=== PATIENT | female | born 1955 | race Caucasian/White ===

== ENCOUNTER 2021-07-24 15:00 | Emergency (ER) | payer MEDICARE, BC ==
[2021-07-24 15:19] VITALS: BP 147/87; PULSE 111; RESP 18; TEMP 98.2
--- NOTE | 2021-07-24 15:27 | ED ---
General Adult HPI - General Chief complaint: Fall Stated complaint: FALL Time Seen by Provider: 07/24/21 15:10 Source: patient, family, EMS Mode of arrival: EMS Limitations: physical limitation - History of Present Illness Initial comments: Presents to the ED by ambulance for evaluation with her son and daughter at bedside. Patient states that she went up some stairs this afternoon and turned to get her walker when her "feet got tangled up", causing her to fall down onto her right side. Per daughter, the patient's son caught her, so "she didn't fall down hard". Daughter states that as they were attempting to get the patient back up, the patient became dizzy and had a brief syncopal episode. Patient, son and daughter all deny head injury or LOC at the time of the patient's fall. Patient denies falling due to dizziness. Patient states that she has felt fatigued since she got her Covid booster shot 2 days ago. Patient denies anticoagulant medication use. Patient is currently only complaining of having right ankle, right knee, right hip and right shoulder pain. Patient states that she has been ambulatory since falling. Patient denies fever or chills, head injury, headache, focal numbness/weakness/neuro deficit, visual changes, speech difficulty, neck/back pain, chest pain, dyspnea, cough or cold symptoms, palpitations, abdominal pain, nausea/vomiting/diarrhea, bloody or melanotic stool, dysuria or urinary symptoms, or any other symptoms or complaints. - Related Data Allergies Allergy/AdvReac Type Severity Reaction Status Date / Time Penicillins Allergy Anaphylaxis Verified 07/24/21 17:27 Review of Systems ROS Statement: Those systems with pertinent positive or pertinent negative responses have been documented in the HPI. ROS Other: All systems not noted in ROS Statement are negative. Past Medical History Past Medical History: Hypertension, Myocardial Infarction ([place]) Additional Past Medical History / Comment(s): Type one diabetes History of Any Multi-Drug Resistant Organisms: None Reported Past Surgical History: Back Surgery, Heart Catheterization With Stent, Joint Replacement, Orthopedic Surgery Additional Past Surgical History / Comment(s): Four stents placed 11/2018, Carpaltunnel surgery, gallbladder in 1973 Past Psychological History: No Psychological Hx Reported Smoking Status: Never smoker Past Alcohol Use History: None Reported Past Drug Use History: None Reported General Exam Limitations: physical limitation General appearance: alert, in no apparent distress Head exam: Present: atraumatic, normocephalic Eye exam: Present: normal appearance, PERRL, EOMI ENT exam: Present: mucous membranes moist, TM's normal bilaterally Neck exam: Present: full ROM, other (Trachea is in midline). Absent: tenderness Respiratory exam: Present: normal lung sounds bilaterally. Absent: respiratory distress, wheezes, rales, rhonchi, stridor, chest wall tenderness Cardiovascular Exam: Present: normal rhythm, tachycardia, normal heart sounds, other (Normal radial pulses bilaterally) GI/Abdominal exam: Present: soft, other (Obese abdomen). Absent: tenderness, guarding Extremities exam: Present: other (Pelvis is stable and nontender; mild diffuse right ankle and right knee tenderness; no right hip or right shoulder tenderness). Absent: pedal edema Back exam: Present: normal inspection. Absent: tenderness Neurological exam: Present: alert, oriented X3, CN II-XII intact. Absent: motor sensory deficit Psychiatric exam: Present: normal affect, normal mood Skin exam: Present: warm, dry, intact, normal color Course Vital Signs 07/24/21 15:06 Temperature 98.2 F Pulse Rate 111 H Respiratory 18 Rate Blood Pressure 147/87 O2 Sat by Pulse 97 Oximetry - Reevaluation(s) Reevaluation #1: 07/24/21 17:27 Patient denies development of any new pain or symptoms while in the ED. Patient remains alert and breathing comfortably with a normal room air oxygen saturation. Patient and son/daughter are aware of the patient's test results, and they all feel comfortable with the patient going home at this time. Patient was counseled about falls, syncope and contusions. Patient was clearly explained return and follow-up instructions, and she was instructed to a low threshold for return to the emergency department should her symptoms worsen. Patient was also instructed to follow up closely with her primary care provider. Patient feels comfortable with this plan. EKG Findings - EKG Comments: EKG Findings:: Sinus tachycardia with borderline first-degree AV block, ventricular rate of 111 bpm, no ectopy, rightward axis, WA interval of 208 ms, normal QRS duration, normal QT interval, no ST or T-wave abnormality Medical Decision Making - Medical Decision Making Patient reports that her fall was completely mechanical in etiology. Patient's reported brief syncopal episode occurred while the patient's son and daughter attempted to get the patient up, and I suspect that this may have triggered a vasovagal episode. Patient states that she has not been dizzy or lightheaded ever since then. Patient's imaging studies are negative for acute osseous abnormalities. Patients labs are fairly unremarkable. I do not suspect an emergent medical condition at this time. Will discharge patient home with her family at this time. - Lab Data Result diagrams: 07/24/21 16:13 07/24/21 16:13 Lab Results 07/24/21 07/24/21 07/24/21 Range/Units 16:13 16:13 16:13 WBC 8.8 (3.8-10.6) k/uL RBC 4.65 (3.80-5.40) m/uL Hgb 14.6 (11.4-16.0) gm/dL Hct 44.4 (34.0-46.0) % MCV 95.5 (80.0-100.0) fL MCH 31.3 (25.0-35.0) pg MCHC 32.8 (31.0-37.0) g/dL RDW 12.7 (11.5-15.5) % Plt Count 251 (150-450) k/uL MPV 7.8 Neutrophils % 84 % Lymphocytes % 7 % Monocytes % 6 % Eosinophils % 2 % Basophils % 0 % Neutrophils # 7.4 (1.3-7.7) k/uL Lymphocytes # 0.6 L (1.0-4.8) k/uL Monocytes # 0.5 (0-1.0) k/uL Eosinophils # 0.2 (0-0.7) k/uL Basophils # 0.0 (0-0.2) k/uL PT 11.2 (9.0-12.0) sec INR 1.1 (<1.2) APTT 22.4 (22.0-30.0) sec Sodium 135 L (137-145) mmol/L Potassium 4.6 (3.5-5.1) mmol/L Chloride 102 (98-107) mmol/L Carbon Dioxide 22 (22-30) mmol/L Anion Gap 11 mmol/L BUN 27 H (7-17) mg/dL Creatinine 1.45 H (0.52-1.04) mg/dL Est GFR (CKD-EPI)AfAm 43 (>60 ml/min/1.73 sqM) Est GFR (CKD-EPI)NonAf 37 (>60 ml/min/1.73 sqM) Glucose 176 H (74-99) mg/dL Calcium 10.2 (8.4-10.2) mg/dL Total Bilirubin 0.8 (0.2-1.3) mg/dL AST 36 (14-36) U/L ALT 27 (4-34) U/L Alkaline Phosphatase 47 (38-126) U/L Troponin I (0.000-0.034) ng/mL Total Protein 7.4 (6.3-8.2) g/dL Albumin 4.4 (3.5-5.0) g/dL 07/24/21 Range/Units 16:13 WBC (3.8-10.6) k/uL RBC (3.80-5.40) m/uL Hgb (11.4-16.0) gm/dL Hct (34.0-46.0) % MCV (80.0-100.0) fL MCH (25.0-35.0) pg MCHC (31.0-37.0) g/dL RDW (11.5-15.5) % Plt Count (150-450) k/uL MPV Neutrophils % % Lymphocytes % % Monocytes % % Eosinophils % % Basophils % % Neutrophils # (1.3-7.7) k/uL Lymphocytes # (1.0-4.8) k/uL Monocytes # (0-1.0) k/uL Eosinophils # (0-0.7) k/uL Basophils # (0-0.2) k/uL PT (9.0-12.0) sec INR (<1.2) APTT (22.0-30.0) sec Sodium (137-145) mmol/L Potassium (3.5-5.1) mmol/L Chloride (98-107) mmol/L Carbon Dioxide (22-30) mmol/L Anion Gap mmol/L BUN (7-17) mg/dL Creatinine (0.52-1.04) mg/dL Est GFR (CKD-EPI)AfAm (>60 ml/min/1.73 sqM) Est GFR (CKD-EPI)NonAf (>60 ml/min/1.73 sqM) Glucose (74-99) mg/dL Calcium (8.4-10.2) mg/dL Total Bilirubin (0.2-1.3) mg/dL AST (14-36) U/L ALT (4-34) U/L Alkaline Phosphatase (38-126) U/L Troponin I <0.012 (0.000-0.034) ng/mL Total Protein (6.3-8.2) g/dL Albumin (3.5-5.0) g/dL - Radiology Data Chest and right shoulder x-rays: 1. Chest: Borderline heart size with interstitial prominence. This may in part be chronic. Correlate to exclude mild pulmonary vascular congestion, bronchitis, or asthma. 2. Right shoulder: Previous rotator cuff repair but with narrowing of the subacromial space. Unable to exclude underlying re-tear. Moderate AC joint OA. No acute fracture, subluxation, dislocation seen. Right hip, right knee and right ankle x-rays: 1. Right hip: Osteopenia and further limitations due to large body habitus. Mild right hip OA. No displaced fracture seen. 2. Right knee: Suspect severe tricompartmental OA. Small knee joint effusion may be reactive. If concern for internal derangement, MRI can be performed. No acute osseous abnormality seen. 3. Right ankle: Generalized soft tissue swelling. Mild tibiotalar joint OA. Prominent plantar heel spurs. Sequela of old injuries to the medial malleolus and syndesmosis. No acute osseous abnormality seen. Disposition Clinical Impression: Fall, Multiple contusions, Syncope Disposition: HOME SELF-CARE Condition: Stable Instructions (If sedation given, give patient instructions): Fall Prevention (ED), Contusion in Adults (ED), Syncope (ED) Additional Instructions: Return to the ER immediately should you develop new or worsening pain, feeling dizzy or faint, a fever, shortness of breath, or new or worsening symptoms. Follow up closely with your primary care provider. Is patient prescribed a controlled substance at d/c from ED?: No Referrals: Kristen Arnett PAC [Primary Care Provider] - 1-2 days Time of Disposition: 17:33
--- NOTE | 2021-07-24 16:26 | XR ---
EXAMINATION TYPE: XR chest 1V portable, XR shoulder complete 3 views RT DATE OF EXAM: 07/24/2021 Comparison: None Clinical History: 66-year-old female with pain after fall Findings: Chest: Heart borderline in size. Mild interstitial prominence. No sj consolidation or pleural effusion. Right shoulder: Moderate degenerative change AC joint. Prominent bony irregularity at the greater tuberosity with lavern or suture anchors of rotator cuff repair. There is narrowing of the subacromial space. No acute fract ure, subluxation, dislocation. Impression: 1. Chest: Borderline heart size with interstitial prominence. This may in part be chronic. Correlate to exclude mild pulmonary vascular congestion, bronchitis, or asthma. 2. Right shoulder: Previous rotator cuff repair but with narrowing of the subacromial space. Unable t o exclude underlying re-tear. Moderate AC joint OA. No acute fracture, subluxation, dislocation seen.
--- NOTE | 2021-07-24 16:30 | XR ---
EXAMINATION TYPE: XR Hip Complete 2 views RT, XR knee complete 3 views RT, XR ankle complete 3 views RT DATE OF EXAM: 07/24/2021 Comparison: None Clinical History: f 59s 6-year-old female with pain after fall Findings: Right hip: Osteopenia and further limitation due to large patient body habitus. There is mild degenerative alvarez e suggested at the right hip. No displaced fracture is seen. Some enthesopathy noted at the ischial t uberosity and greater trochanter. Right knee: Complete to near complete loss of cartilage and joint space within both medial and lateral compartmen ts with subchondral sclerosis, mild bony remodeling, and marginal spurring. Additional severe degener ative spurring patellofemoral compartment. Small knee joint effusion. Extensor mechanism appears inta ct. No acute fracture, subluxation, dislocation seen. Right ankle: Generalized soft tissue swelling. Corticated bone fragments below the medial malleolus suggesting seq uela of remote injuries. Bony irregularity also seen along the lateral margin of the distal tibia sug gesting old syndesmotic injuries. Ankle mortise remains congruent. Talar dome is intact. Mild degener ative spurring tibiotalar joint. Moderate plantar heel spurs. Posterior calcaneal spurs well. General ized soft tissue swelling. Enthesopathy and some chronic fragmentation at the base of the fifth metat arsal. IMPRESSION: 1. Right hip: Osteopenia and further limitations due to large body habitus. Mild right hip OA. No dis placed fracture seen. 2. Right knee: Suspect severe tricompartmental OA. Small knee joint effusion may be reactive. If conc russell for internal derangement, MRI can be performed. No acute osseous abnormality seen. 3. Right ankle: Generalized soft tissue swelling. Mild tibiotalar joint OA. Prominent plantar heel sp urs. Sequela of old injuries to the medial malleolus and syndesmosis. No acute osseous abnormality se en.
[2021-07-24 16:37] LABS: Basophils % (A) 0 %; Eosinophils # (A) 0.2 k/uL (0-0.7); Eosinophils % (A) 2 %; HCT 44.4 % (34.0-46.0); HGB 14.6 gm/dL (11.4-16.0); Lymphocytes # (A) 0.6 k/uL (1.0-4.8); Lymphocytes % (A) 7 %; MCH 31.3 pg (25.0-35.0); MCHC 32.8 g/dL (31.0-37.0); MCV 95.5 fL (80.0-100.0); Mean Platelet Volume 7.8; Monocytes # (A) 0.5 k/uL (0-1.0); Monocytes % (A) 6 %; Neutrophils # (A) 7.4 k/uL (1.3-7.7); Neutrophils % (A) 84 %; Platelet Count 251 k/uL (150-450); RBC 4.65 m/uL (3.80-5.40); RDW 12.7 % (11.5-15.5); WBC 8.8 k/uL (3.8-10.6)
[2021-07-24 16:42] LABS: Albumin 4.4 g/dL (3.5-5.0); Calcium 10.2 mg/dL (8.4-10.2); Potassium 4.6 mmol/L (3.5-5.1); Total Bilirubin 0.8 mg/dL (0.2-1.3); Total Protein 7.4 g/dL (6.3-8.2)
[2021-07-24 16:48] LABS: INR 1.1 (<1.2); Partial Thromboplastin Time 22.4 sec (22.0-30.0); Prothrombin Time 11.2 sec (9.0-12.0)
== END 2021-07-24 17:45 | disposition home or self-care (01) ==
LOC: EC 15:00
DX: S90.01XA Contusion of right ankle, initial encounter (principal); S80.01XA Contusion of right knee, initial encounter; R55 Syncope and collapse; I10 Essential (primary) hypertension; I25.2 Old myocardial infarction; W18.30XA Fall on same level, unspecified, initial encounter
CPT/HCPCS: 36415; 71045; 73502; 80053; 84484; 85025; 85610; 85730; 93005; 99284